=== PATIENT | male | born 1985 | race Caucasian/White ===

== ENCOUNTER 2019-05-05 15:00 | Emergency (ER) | payer OTHER ==
[~2019-05-05] VITALS: Ht 188 cm; Wt 84.4 kg
== END 2019-05-05 16:16 | disposition home or self-care (01) ==
LOC: ER 15:00
DX: M43.6 Torticollis (principal); M54.2 Cervicalgia

== ENCOUNTER 2024-04-09 09:36 | Emergency (ER) | payer OTHER ==
[~2024-04-09] VITALS: Ht 188 cm; Wt 95.3 kg
[2024-04-09] MEDS ORDERED: TETANUS & DIPHTHERIA TOX,ADULT 0.5 ML VIAL IM ONE (10:00)
[2024-04-09] MEDS ORDERED: CEFTRIAXONE SODIUM 1,000 MG VIAL IM ONE (10:00)
[2024-04-09] MEDS ORDERED: AMOX-CLAV 875-1 EACH PO (10:04)
== END 2024-04-09 10:11 | disposition home or self-care (01) ==
LOC: ER 09:37
DX: S91.332A Puncture wound without foreign body, left foot, initial encounter (principal); W45.0XXA Nail entering through skin, initial encounter; Y93.89 Activity, other specified; Y92.89 Other specified places as the place of occurrence of the external cause; Y99.9 Unspecified external cause status